=== PATIENT | female | born 1985 | race Caucasian/White ===

== ENCOUNTER 2018-02-16 17:02 | Emergency (ER) | payer BC ==
[2018-02-16] MEDS ORDERED: ACETAMINOPHEN 325 MG TABLET (FP) PO ONE (17:15)
[2018-02-16] MEDS ORDERED: SODIUM CHLORIDE 1,000 ML IV STA (17:15)
--- NOTE | 2018-02-16 17:21 | PDOC ---
History of Present Illness - General Stated Complaint: 9 WEEKS Vaginal Bleeding Time Seen by Provider: 02/16/18 17:15 History Source: Patient - History of Present Illness Quality: reports: severe Past History - Past Medical History Allergies/Adverse Reactions: Allergies Allergy/AdvReac Type Severity Reaction Status Date / Time No Known Allergies Allergy Verified 02/16/18 17:48 Home Medications: Ambulatory Orders Vitamins (Sjr) - 1 tab PO DAILY 02/16/18 Review of Systems - Review of Systems Constitutional: No: Chills, Fever ABD/GI: Yes: Abdominal cramping. No: Nausea, Vomiting : Yes: Other (vag bleeding). No: Dysuria, Flank Pain, Hematuria Musculoskeletal: No: Back Pain *Physical Exam - Physical Exam Comments: 02/16/18 17:32 Pt appears uncomfortable, currently bleeding and saturating back of skirt in ED General Appearance: Yes: Appropriately Dressed. No: Apparent Distress HEENT: positive: Normal Voice Neck: positive: Supple Respiratory/Chest: negative: Respiratory Distress Female Pelvic Exam: positive: vaginal bleeding (significant vag bleeding w/ numerous large clots, unable to visualize or palpate os) Gastrointestinal/Abdominal: positive: Tender (poorly localized ttp diffusely to lower abd), Soft. negative: Distended Musculoskeletal: negative: CVA Tenderness Integumentary: positive: Dry, Warm Neurologic: positive: Fully Oriented, Alert, Normal Mood/Affect ED Treatment Course - LABORATORY CBC & Chemistry Diagram: 02/16/18 17:37 02/16/18 17:37 - RADIOLOGY Radiology Studies Ordered: Category Date Time Status TRANSVAGINAL US PREG [US] Stat Ultrasound 02/16/18 17:16 Ordered Medical Decision Making - Medical Decision Making 02/16/18 17:16 32-year-old female, (s/p 1 spon ab), currently 9 weeks , here with abdominal pain and vaginal bleeding. Patient states she has had lower abdominal cramping and vaginal bleeding throughout that has been intermittent. Had ultrasound last week showing IUP with cardiac activity per pt. States pain and bleeding acutely worsened today. No clots. Denies dysuria , nausea, vomiting, fever or chills see exam Concern for spon AB IUP w/ FHR demonstrated on US last week per pt Stable in ED but angeline uncomfortable w/ significant vag bleed and numerous clots on pelvic exam, unable to visualize or palpate os -pain control -IVF -labs -US -?[facility] c/s 02/16/18 18:39 US read as no IUP and e/o ectopic. Given pt's report of +IUP on US last week, spon AB more likely at this time. Beta quant pending from today. Rest of labs unremarkable. Anticipate discharge w/ [employer] f/u this week 02/16/18 19:00 Pt signed out to NATHEN [facility] pending rest of labs and reassessment *DC/Admit/Observation/Transfer Diagnosis at time of Disposition: Spontaneous - Referrals Referrals: Katarina Licona [Primary Care Provider] - - Patient Instructions - Post Discharge Activity
[2018-02-16 17:23] VITALS: BP 123/65; PULSE 78; BMI 38.9
[2018-02-16 17:54] LABS: BASO % 0.4 % (0-2.0); LYMPH % 13.7 % (8-40); MCH 28.1 pg (25.7-33.7); MCHC 31.7 g/dl (32.0-36.0); MEAN CELL VOLUME 88.4 fl (80-96); MEAN PLT VOLUME 10.2 fl (7.5-11.1); MONO % 4.2 % (3.8-10.2); NEUT % 81.7 % (42.8-82.8); PLATELET COUNT 271 K/MM3 (134-434); RBC 4.63 M/mm3 (3.60-5.2); RDW 13.7 % (11.6-15.6); WHITE BLOOD COUNT 12.6 K/mm3 (4.0-10.0)
[2018-02-16 18:10] LABS: ALBUMIN 4.3 g/dl (3.4-5.0); ALK PHOS 42 U/L (45-117); ANION GAP 10 MMOL/L (8-16); BILIRUBIN,TOTAL 0.3 mg/dL (0.2-1); BLOOD UREA NITROGEN 7 mg/dL (7-18); CALCIUM 9.1 mg/dL (8.5-10.1); CHLORIDE 101 mmol/L (98-107); CO2 24 mmol/L (21-32); CREATININE 0.7 mg/dL (0.55-1.3); GLUCOSE,RANDOM 95 mg/dL (74-106); POTASSIUM 3.4 mmol/L (3.5-5.1); SGOT/AST 18 U/L (15-37); SGPT/ALT 25 U/L (13-61); SODIUM 135 mmol/L (136-145); TOT PROT 7.2 g/dl (6.4-8.2)
[2018-02-16 18:42] LABS: INR 0.97 (0.83-1.09); PROTHROMBIN TIME (PATIENT) 11.5 SEC (9.7-13.0)
[2018-02-16] MEDS ORDERED: LACTATED RINGERS SOLUTION 1,000 ML/1,000 ML INFUS.BAG IV SCH (20:00)
--- NOTE | 2018-02-16 21:05 | PDOC ---
*Physical Exam - Vital Signs Last Vital Signs Temp Pulse Resp BP Pulse Ox 78 18 123/65 99 02/16/18 17:19 02/16/18 17:19 02/16/18 17:19 02/16/18 17:19 - Physical Exam General Appearance: Yes: Appropriately Dressed Gastrointestinal/Abdominal: positive: Normal Bowel Sounds, Soft. negative: Tender Extremity: positive: Normal Capillary Refill Integumentary: positive: Normal Color, Dry, Warm Neurologic: positive: Fully Oriented, Alert, Normal Mood/Affect ED Treatment Course - LABORATORY CBC & Chemistry Diagram: 02/16/18 17:37 02/16/18 17:37 - ADDITIONAL ORDERS Additional order review: Laboratory Results 02/16/18 02/16/18 02/16/18 19:52 17:37 17:37 PT with INR INR Sodium 135 L Potassium 3.4 L Chloride 101 Carbon Dioxide 24 Anion Gap 10 BUN 7 Creatinine 0.7 Creat Clearance w eGFR > 60 Random Glucose 95 Calcium 9.1 Total Bilirubin 0.3 AST 18 ALT 25 Alkaline Phosphatase 42 L Total Protein 7.2 Albumin 4.3 Beta HCG, Quant Cancelled 31492.2 Blood Type AB POSITIVE Antibody Screen Negative 02/16/18 17:37 PT with INR 11.50 INR 0.97 Sodium Potassium Chloride Carbon Dioxide Anion Gap BUN Creatinine Creat Clearance w eGFR Random Glucose Calcium Total Bilirubin AST ALT Alkaline Phosphatase Total Protein Albumin Beta HCG, Quant Blood Type Antibody Screen 02/16/18 17:37 RBC 4.63 MCV 88.4 MCHC 31.7 L RDW 13.7 MPV 10.2 Neutrophils % 81.7 Lymphocytes % 13.7 Monocytes % 4.2 Eosinophils % 0.0 Basophils % 0.4 - Medications Given in the ED: ED Medications Discontinued Medications Generic Name Dose Route Start Last Admin Trade Name Freq PRN Reason Stop Dose Admin Acetaminophen 650 mg 02/16/18 17:15 02/16/18 17:48 Tylenol - PO 02/16/18 17:16 650 mg ONCE ONE Administration Sodium Chloride 1,000 mls @ 1,000 mls/hr 02/16/18 17:15 02/16/18 17:48 Normal Saline - IV 02/16/18 18:14 1,000 mls/hr ASDIR STA Administration Medical Decision Making - Medical Decision Making 02/16/18 21:27 vaginal bleeding less than arrival. patient now tolerating PO. Labs wnl. d/c instructions given, return precautions reviewed with patient *DC/Admit/Observation/Transfer Diagnosis at time of Disposition: Spontaneous - Discharge Dispostion Disposition: HOME Condition at time of disposition: Stable - Referrals Referrals: Katarina Licona [Primary Care Provider] - Mercy Mondragon MD [Staff Physician] - 2 Days - Patient Instructions Printed Discharge Instructions: DI for Miscarriage Additional Instructions: drink plenty of fluids. return to the ER if your soaking 2 pads per hour, severe abdominal pain or worsening symptoms. please follow up with your Ob in 1-2 days. - Post Discharge Activity Forms/Work/School Notes: Back to Work
[2018-02-16 21:08] LABS: URINE APPEARANCE CLOUDY; URINE BILIRUBIN NEGATIVE (<2.0 mg/dL); URINE COLOR RED; URINE GLUCOSE (UA) NEGATIVE (NEGATIVE); URINE KETONE 1+ (NEGATIVE); URINE LEUK ESTERASE NEGATIVE (NEGATIVE); URINE NITRITE NEGATIVE (NEGATIVE); URINE PROTEIN 2+ (NEGATIVE); URINE UROBILINOGEN NEGATIVE mg/dL (0.2-1.0)
[2018-02-16 21:16] LABS: URINE BACTERIA FEW /hpf (NONE SEEN); URINE MUCUS FEW
[2018-02-16] MEDS ORDERED: KETOROLAC TROMETHAMINE 30 MG/1 ML VIAL IVPUSH ONE (21:46)
[2018-02-16] MEDS ORDERED: KETOROLAC TROMETHAMINE 30 MG/1 ML VIAL ONE (21:48)
== END 2018-02-16 22:33 | disposition home or self-care (01) ==
LOC: JER 17:02
PROC: 3E0337Z Introduction of Electrolytic and Water Balance Substance into Peripheral Vein, Percutaneous Approach (ICD-10-PCS; principal; 2018-02-16)
PROC: 3E0333Z Introduction of Anti-inflammatory into Peripheral Vein, Percutaneous Approach (ICD-10-PCS; 2018-02-16)
DX: O26.891 Other specified pregnancy related conditions, first trimester (principal); O03.9 Complete or unspecified spontaneous abortion without complication; Z3A.09 9 weeks gestation of pregnancy
CPT/HCPCS: 36415; 76817-TC; 80053; 81003; 81015; 84702; 85025; 85610; 86850; 86900; 86901; 99283-25; J7030

== ENCOUNTER 2021-09-13 22:24 | Emergency (ER) | payer BC ==
[2021-09-13 22:34] VITALS: BP 136/89; PULSE 102; TEMP 98.5; BMI 38.9
[2021-09-14] MEDS ORDERED: IBUPROFEN 600 MG TABLET (FP) PO ONE ×2 (00:10→00:34)
[2021-09-14 00:30] LABS: EPI CELLS 6 /uL (0-25.1); HCG,QUALITATIVE URINE Negative; HYALINE CASTS 0 /uL (0-3.1); URINE APPEARANCE CLEAR; URINE BACTERIA 66 /uL (0-1359); URINE BILIRUBIN NEGATIVE (NEGATIVE); URINE COLOR YELLOW; URINE GLUCOSE (UA) NEGATIVE (NEGATIVE); URINE KETONE NEGATIVE (NEGATIVE); URINE LEUK ESTERASE TRACE (NEGATIVE); URINE NITRITE NEGATIVE (NEGATIVE); URINE PROTEIN NEGATIVE (NEGATIVE); URINE RBC 3 /uL (0-23.9); URINE UROBILINOGEN 0.2 mg/dL (0.2-1.0); URINE WBC 30 /uL (0-25.8)
[2021-09-14 00:51] LABS: CALCIUM 9.9 mg/dL (8.5-10.1)
[2021-09-14 00:52] LABS: ALBUMIN 3.8 g/dl (3.4-5.0)
[2021-09-14 00:55] LABS: CREATININE 0.6 mg/dL (0.55-1.3)
[2021-09-14 00:56] LABS: BILIRUBIN,TOTAL 0.1 mg/dL (0.2-1); TOT PROT 7.5 g/dl (6.4-8.2)
[2021-09-14 01:41] LABS: BASO % 0.8 % (0-2.0); EOS % 0.7 % (0-4.5); HEMATOCRIT 40.2 % (32.4-45.2); HEMOGLOBIN 13.1 GM/dL (10.7-15.3); MCH 27.9 pg (25.7-33.7); MCHC 32.6 g/dl (32.0-36.0); MEAN CELL VOLUME 85.7 fl (80-96); MEAN PLT VOLUME 10.2 fl (7.5-11.1); MONO % 8.6 % (3.8-10.2); NEUT % 56.9 % (42.8-82.8); PLATELET COUNT 309 10^3/uL (134-434); RBC 4.69 M/mm3 (3.60-5.2); RDW 14.2 % (11.6-15.6); WHITE BLOOD COUNT 8.8 K/mm3 (4.0-10.0)
[2021-09-14] MEDS ORDERED: ACETAMINOPHEN 1000 MG/100 ML BAG IVPB ONE (02:06)
[2021-09-14] MEDS ORDERED: ACETAMINOPHEN INJECTION 100 ML IVPB ONE (02:09)
[2021-09-14] MEDS ORDERED: KETOROLAC TROMETHAMINE 30 MG/1 ML VIAL IVPUSH ONE (03:54)
[2021-09-14] MEDS ORDERED: PHENAZOPYRIDINE HCL 100 MG TABLET (FP) PO ONE (03:55)
[2021-09-14] MEDS ORDERED: KETOROLAC TROMETHAMINE 15 MG/ML VIAL ONE (04:00)
[2021-09-14] MEDS ORDERED: PHENAZOPYRIDINE HCL 100 MG TABLET (FP) ONE (04:00)
[2021-09-14] MEDS ORDERED: SULFAMETHOXAZOLE/TRIMETHOPRIM 800MG/160MG D.S. TABLET PO ONE (04:01)
[2021-09-14] MEDS ORDERED: SULFAMETHOXAZOLE/TRIMETHOPRIM 800MG/160MG D.S. TABLET ONE (04:01)
[2021-09-14 04:15] LABS: HIV INTERPRETATION NEGATIVE (NEGATIVE)
== END 2021-09-14 04:30 ==
LOC: JER 22:24
PROC: 3E033GC Introduction of Other Therapeutic Substance into Peripheral Vein, Percutaneous Approach (ICD-10-PCS; principal; 2021-09-13)
DX: N30.00 Acute cystitis without hematuria (principal)
CPT/HCPCS: 36415; 74176-TC; 80053; 81003; 84460; 84703; 85025; 86803; 87077; 87086; 87340; 87389; 99285-25